=== PATIENT | female | born 1980 | race Caucasian/White ===

== ENCOUNTER 2023-09-19 03:31 | Inpatient (IN) | payer MEDICAID, SELFPAY ==
[2023-09-19] VITALS (18 sets, daily range): BP systolic 107–147; BP diastolic 71–97; PULSE 65–87; RESP 16–22; TEMP 36.8–37.2; O2SAT 94–100; BMI 32.5
--- NOTE | 2023-09-19 03:36 | PC.NURSE ---
pt arrived to the floor via stretcher from [facility] with EMS, @[id number]
--- NOTE | 2023-09-19 03:53 | EXP.HP ---
History of Present Illness *Admission Date: 09/19/23 *Reason for visit:: CP *History of present illness: Patient is a 43-year-old obese female, with PMHx of recent diagnosis of diabetes, hypertension, hyperlipidemia, current smoker. Patient been admitted from [facility] for evaluation and workup of chest pain. Patient is that the symptoms began 2 days ago when she initially went to the ED for evaluation, at that time labs were unremarkable patient was discharged home. Came back tonight with worsening pain. Pain does not radiate or migrate to the arms got worse when she lies flat. Patient localizes pain to the right parasternal area in the midclavicular area and also reports that sometimes goes to the right shoulder and neck. Patient denies any associated shortness of breath or fatigue. No fever. No any other symptoms. ED from another facility request admission for evaluation and cardiac workup. [facility] Disclaimer: The information contained in this section may have been updated after the patient was seen, as this information can be updated by other users. Medical History (Updated 09/19/23 @ 04:43 by David Acuña APRN) History of cervical cancer Hyperlipidemia Hypertension Diabetes mellitus Surgical History (Updated 09/19/23 @ 04:25 by Yasmin Haywood RN) History of appendectomy Family History (Updated 09/19/23 @ 04:25 by Yasmin Haywood RN) Other Family history of blood clots Family history of epilepsy Family history of heart disease Social History (Updated 09/19/23 @ 04:25 by Yasmin Haywood RN) Smoking Status: Current every day smoker alcohol intake: never current occupational status: employed Travel in the last 8 weeks: Inside the [place] Review of Systems Review of Systems Review of systems:: pertinent systems reviewed and negative unless documented below Meds Home Medications and Allergies Home Medications Medication Instructions Recorded Confirmed Type amlodipine 10 mg tablet 10 mg PO DAILY 09/19/23 09/19/23 History aspirin 81 mg chewable tablet 81 mg PO DAILY 09/19/23 09/19/23 History empagliflozin 25 mg tablet 25 mg PO DAILY 09/19/23 09/19/23 History (Jardiance) fluticasone propionate 50 2 spray intranasal BID 09/19/23 09/19/23 History mcg/actuation nasal spray,suspension levocetirizine 5 mg tablet 5 mg PO HS 09/19/23 09/19/23 History metformin 500 mg tablet 500 mg PO BID 09/19/23 09/19/23 History naproxen 250 mg tablet 250 mg PO BID PRN headaches 09/19/23 09/19/23 History nebivolol 10 mg tablet (Bystolic) 10 mg PO DAILY 09/19/23 09/19/23 History nicotine 10 mg/mL nasal spray 1 spray intranasal DAILY 09/19/23 09/19/23 History (Nicotrol NS) pravastatin 80 mg tablet 80 mg PO HS 09/19/23 09/19/23 History semaglutide 0.25 mg or 0.5 mg (2 0.5 mg SQ WEEKLY 09/19/23 09/19/23 History mg/3 mL) subcutaneous pen injector (Ozempic) New Prescriptions to Start Prescriptions: Allergies Allergy/AdvReac Type Severity Reaction Status Date / Time No Known Allergies Allergy Verified 09/19/23 03:44 Exam Data for Last 24 hours I & O for Last 24 hours: Intake & Output 09/16/23 09/17/23 09/18/23 09/19/23 23:59 23:59 23:59 23:59 Weight 80.739 kg Constitutional Constitutional: mild distress, obese and cooperative *Routine HEENT Exam Head: Present normocephalic Eye: Present EOMI and PERRL ENT: Present mucous membranes moist *Routine Neck Exam Neck: Present supple; Absent lymphadenopathy *Routine Respiratory Exam Respiratory: Present CTA bilaterally, normal respiratory effort and symmetric chest movement *Routine Cardiovascular Exam Cardiovascular: Present RRR, Normal S1 and Normal S2 *Routine Abdominal Exam Abdominal: Present soft and normoactive bowel sounds; Absent tenderness *Routine Rectal Exam Rectal:: deferred *Routine Genitalia Exam Genitalia:: deferred *Routine Extremities Exam Extremities: Absent cyanosis, clubbing or edema *Routine Skin Exam Skin: Present warm; Absent rash *Routine Neurological Exam Neurological: Present alert and oriented X3 H&P: Result Imaging and Cardiology EKG: Status: image reviewed by me and Preliminary report Assessment and Plan *Assessment and plan (1) NSTEMI (non-ST elevated myocardial infarction): Status: Acute Category: Medical Code(s): I21.4 - Non-ST elevation (NSTEMI) myocardial infarction (2) Thrombocytosis, unspecified: Status: Acute Category: Medical Code(s): D75.839 - Thrombocytosis, unspecified (3) Hypertension: Status: Acute Qualifiers: Hypertension type: unspecified Qualified Code(s): I10 - Essential (primary) hypertension Category: Medical Code(s): I10 - Essential (primary) hypertension (4) Diabetes mellitus: Status: Acute Qualifiers: Diabetes mellitus complication status: with other specified complication Diabetes mellitus rodent exterminator insulin use: without correction use Diabetes mellitus type: type 2 Qualified Code(s): E11.69 - Type 2 diabetes mellitus with other specified complication Category: Medical Code(s): E11.9 - Type 2 diabetes mellitus without complications (5) Hyperlipidemia: Status: Acute Qualifiers: Hyperlipidemia type: unspecified Qualified Code(s): E78.5 - Hyperlipidemia, unspecified Category: Medical Code(s): E78.5 - Hyperlipidemia, unspecified (6) Current smoker: Status: Acute Category: Social Hx Code(s): F17.200 - Nicotine dependence, unspecified, uncomplicated (7) Obesity (BMI 30-39.9): Status: Acute Category: Medical Code(s): E66.9 - Obesity, unspecified Plan 43-year-old obese female, with PMHx of recent diagnosis of diabetes, hypertension, hyperlipidemia, current smoker. Patient been admitted from [facility] for evaluation and workup of chest pain. Initial workup included troponin that was elevated x 2. EKG was showing nonspecific ST changes. With some T wave version. Patient was loaded with aspirin 325 mg. Transfer was requested. Discussed with the ER provider at the other facility patient is core 6 on cardiac risk which is considered moderate, the mean to inpatient monitoring for any further workup. I agree for transfer and admission. Plan as follows: -NSTEMI: Admit patient for continuous cardiac telemetry. Cardiology consult Keep it n.p.o. for further cardiac intervention Monitor for chest pain heart rhythm and vital signs per unit Obtain CBC CMP and lipid panel Trend troponin Chest x-ray. And EKG PT/INR Nitroglycerin sublingual as needed for chest pain. Morphine for severe pain Optimize O2 saturation oxygen nasal cannula as needed Brilinta 180 mg once -Thrombocytosis unspecified. No history of splenectomy patient has history of malignant tumor of cervix removed. Also could be related to smoking will repeat and monitor CBC -History of hypertension diabetes and hyperlipidemia: Accu-Chek before meals Hold metformin On sliding scale Obtain A1c Resume amlodipine aspirin and pravastatin Current smoker: On nicotine patch Obesity: Patient on Ozempic weekly. Encouraged to continue weight reduction. Lovenox for DVT prophylaxis. On Protonix for GI bleed protection Full code Rounded on patient after nurse practitioner. Personally examined and interviewed patient. Agree with exam findings and care plan as documented. Troponin trended up, repeat 0.48. Cardiology evaluated. Going for heart cath today. Continues to require inpatient management. Chest pain better by morning rounds
--- NOTE | 2023-09-19 04:17 | ECG_ITS ---
APPROVED REPORT Exam: Resting ECG HR:79 bpm ECG Measurements Heart Rate 79 AXES MO 156 P 55 QRSd 87 QRS 46 QT 383 T 14 QTc 417 Conclusion SINUS RHYTHM NORMAL ECG UNCONFIRMED REPORT Electronically signed by : BIA PATEL, 09/20/2023 02:24:56
--- NOTE | 2023-09-19 04:17 | XR_ITS ---
FINAL REPORT TECHNIQUE: Single view chest CLINICAL HISTORY: CP FINDINGS: A single view of the chest was obtained. The heart and mediastinum are within normal limits. There are mild bibasilar opacities favored to represent atelectasis over pneumonia. There is no pneumothorax. Osseous structures are unremarkable. IMPRESSION: Mild bibasilar opacities, favor atelectasis over pneumonia. Reviewed, Interpreted and Dictated by Stephen Bush III, MD Transcribed by Lori Glasgow Authenticated and [facility]
[2023-09-19 04:22] LABS: Basophils # 0.1 K/mm3 (0-0.2); Basophils % 0.6 % (0.1-2.0); Eosinophils # 0.2 K/mm3 (0.0-0.4); Eosinophils % 1.6 % (0.1-12.0); Hematocrit 45.4 % (37.0-47.0); Hemoglobin 14.9 g/dL (12.2-16.2); Lymphocytes # 1.6 K/mm3 (0.7-4.5); Lymphocytes % 11.4 % (10-50); Mean Corpuscular HGB Conc 32.7 g/dL (31.8-35.4); Mean Corpuscular Hemoglobin 33.4 pg (27.0-31.2); Mean Corpuscular Volume 102.2 fl (81-99); Mean Platelet Volume 11.3 fl (7.4-10.4); Monocytes # 0.2 K/mm3 (0.1-1.0); Monocytes % 1.7 % (1.7-9.3); Neutrophils % 84.7 % (37.0-80.0); Platelet Count 623 K/mm3 (142-424); Red Blood Count 4.45 M/mm3 (4.20-5.40); Red Cell Distribution Width 14.7 % (11.5-17.5); White Blood Count 14.1 K/mm3 (4.8-10.8)
[2023-09-19 04:27] LABS: Chloride 106 mmol/L (98-107)
[2023-09-19 04:28] LABS: Potassium 5.1 mmoL/L (3.5-5.1); Sodium 142 mmol/L (136-145)
[2023-09-19 04:30] LABS: Alanine Aminotransferase 30 U/L (12-78); Albumin Level 4.7 g/dl (3.5-5.0); Albumin/Globulin Ratio 1.2 (1.1-1.8); Alkaline Phosphatase 79 U/L (38-126); Anion Gap 16.1 mEq/L (5-15); Aspartate Amino Transferase 29 U/L (14-36); Bilirubin,Total 0.4 mg/dl (0.2-1.3); Blood Urea Nitrogen 17 mg/dl (7-17); Carbon Dioxide 25 mmol/L (22.0-30.0); Creatinine Clearance Estimated 102 mL/min (50-200); Estimated Glomerular Filt Rate 68 ml/min (>60); GFR (African American) 82 ML/MIN (>60); Total Protein,Serum 8.7 g/dl (6.3-8.2)
[2023-09-19 04:31] LABS: Calcium 10.1 mg/dl (8.4-10.2); Chol/HDL Ratio 3.2 (1-3.5); Cholesterol 235 mg/dl (140-200); Glucose 152 mg/dl (74-100); HDL Cholesterol 73 mg/dl (40-60); Triglycerides 91 mg/dl (30-150); VLDL Cholesterol 18 mg/dL (0-40)
[2023-09-19 04:36] LABS: Hemoglobin A1C 5.7 % (4.0-6.0); INR 0.96 (0.9-1.1); Prothrombin Time 10.4 seconds (10.1-12.5)
[2023-09-19 04:42] LABS: Direct LDL Cholesterol 119.61 mg/dL (100-129)
[2023-09-19 04:43] LABS: Troponin I 0.14 ng/ml (0.00-0.034)
[2023-09-19] MEDS: NICOTINE 21MG/24HR PATCH 21 MG TD (05:01)
[2023-09-19 05:02] LABS: Thyroid Stimulating Hormone 0.84 uIU/mL (0.465-4.68)
[2023-09-19] MEDS: TICAGRELOR 90MG TABLET 180 MG PO (05:07)
[2023-09-19 05:16] LABS: C-Reactive Protein 1.8 mg/L (0-4)
[2023-09-19 05:35] LABS: Erythrocyte Sedimentation Rate 4 mm/hr (0-20)
[2023-09-19 06:23] LABS: POC Glucose,Bedside 121 (70-110)
--- NOTE | 2023-09-19 07:55 | HMH.PHAINT1 ---
Pharmacy Intervention Comments: HOE MEDICATION LIST VERIFIED USING LIST FROM OUTPATIENT PHARMACY
--- NOTE | 2023-09-19 08:14 | PC.NURSE ---
All documentation and care provided by Roxi MONROY, was completed under my direct supervision. Coty Pandya RN
--- NOTE | 2023-09-19 08:20 | CA_ITS ---
APPROVED REPORT EXAM: Comprehensive 2D, Doppler, and color-flow Echocardiogram Landscape Laborer: Char Viveros RDCS Ht: 5 ft 2 in Wt: 178lbs BSA: 1.82 BP: 124/81 mmHg Indications: NSTEMI,DM,CP M-Mode Dimensions RVDd 1.00 cm (0.9-2.6) LA Diam 2.48 cm (1.9-4.0) LVDd 4.91 cm (3.5-5.7) LVDs 3.72 cm (3.5-5.7) IVSd 0.66 cm (0.6-1.1) PWd 0.69 cm (0.6-1.1) EF (Teich) 48.10% FS 24.20% EDV (Teich) 113.40 mL ESV (Teich) 58.90 mL LV Diastology E Decel Time 190 (160-240 msec) E/A Ratio 0.9 Aortic Valve ABIDA Index 0.99 cm2/m2 AoV Peak Terrence. 157.0 (50-130 cm/s) AO Peak GR. 9.90 mmHg AO Mean GR. 4.80 (<5 mmHg) AO VTI 27.4 (18-25 cm) ABIDA (VTI) 1.85 (2.5-4.5 cm2) Mitral Valve MV E Max Terrence. 67.0 (40-130 cm/s) MV A Velocity 71.0 (40-130 cm/s) E/A Ratio 0.95 MV PHT 56.0 ms Left Ventricle The left ventricle is normal size. The left ventricular systolic function is mildly reduced. There is normal left ventricular wall thickness. There is moderate hypokinesis of the inferior anteroseptal, and inferolateral LV dickens. The left ventricular diastolic function is normal. LVEF is 45%. Right Ventricle The right ventricle is normal size. The right ventricular systolic function is normal. Atria The left atrium size is normal. The right atrium size is normal. There is no Doppler evidence of interatrial shunt. Aortic Valve The aortic valve opens well. There is no aortic valvular stenosis. No aortic regurgitation. Mitral Valve The mitral valve is normal in structure. No evidence of mitral valve stenosis. Trace mitral valve regurgitation noted. Tricuspid Valve The tricuspid valve leaflets are thin and pliable. Trace tricuspid regurgitation. There is insufficient TR jet to estimate RVSP. Pulmonic Valve The pulmonary valve is normal in structure. Trace pulmonic regurgitation. Great Vessels The aortic root is normal in size. The ascending aorta is not well-visualized. IVC is normal in size and collapses >50% with inspiration. Pericardium There is no pericardial effusion. Other Information Study Quality: Fair Conclusion Mildly reduced LV systolic function (LVEF 45%). Moderate hypokinesis of the inferior anteroseptal, and inferolateral LV dickens. No significant valvular stenosis or regurgitation. Of note, the above findings of reduced LVEF and wall motion abnormalities were relayed to the inpatient cardiology service team at the time of image acquisition. Electronically signed by : Gemini Laureano MD 09/21/2023 23:48:24
[2023-09-19 08:51] LABS: Troponin I 0.48 ng/ml (0.00-0.034)
--- NOTE | 2023-09-19 09:42 | IR_ITS ---
APPROVED REPORT Patient Location: Inpatient PROCEDURES Selective coronary angiogram Drug-eluting stent to the ostial proximal and mid dominant right coronary in a contiguous manner Drug-eluting stent deployment to the proximal and mid circumflex artery INDICATION Acute non-ST elevation myocardial infarction, Coronary artery disease Informed consent was obtained prior to the procedure. COMPLICATIONS NONE Estimated Blood Loss: LESS THAN 10 ML TECHNIQUE One percent lidocaine used to anesthetize the right anterior aspect of the wrist. The right radial artery was accessed via the Seldinger technique. A 6 Swedish sheath was placed in the right radial artery. 2.5 mg of Verapamil, 800 mcg of nitroglycerin, 1mg Lidocaine and 5000 U Heparin were given through the arterial sheath. The papa catheter was also used to perform selective coronary angiogram. At the end the diagnostic angiogram therapeutic heparin was administered giving a therapeutic ACT and the guide catheter was placed in left main artery followed by Choice PT extra-support wire placed down the circumflex artery. A 3 mm x 38 mm [place] frontier stent was placed in the proximal to mid portion of the circumflex artery extending into the terminal obtuse marginal artery and deployed at 12 monica. A 3 mm x 12 mm noncompliant balloon was then placed in the distal portion and deployed at 20 monica to post dilate. The balloon was brought back and deployed at 24 monica in the proximal segment also post dilate. BRODERICK II flow was present at the beginning of the procedure with BRODERICK-3 flow at the end the procedure. Following this the apparatus was removed from the left main artery and placed in the right coronary followed by Choice PT extra-support wire placed distally. A 3 mm x 38 mm [place] frontier stent was placed in the proximal to mid right coronary artery and deployed at 20 monica. A 3.5 x 34 mm [place] frontier stent was placed proximal to this yet still overlapping it and extending back into the ostial segment and deployed at 20 monica. A 3.5 x 12 mm noncompliant balloon was then placed in the proximal segment deployed at 26 monica to post dilate. BRODERICK-3 flow was present before and after the procedure. At the end procedure the apparatus was removed the sheath was removed and hemostasis was achieved using TR banding patient was transferred to the postop holding in stable condition ANGIOGRAPHIC RESULTS The left main artery Normal The left anterior descending artery Has proximal 30% stenosis with mid vessel 40% stenosis The circumflex artery Large nondominant yet still large and has a critical proximal eccentric 90% stenosis with an additional 90% stenosis in the second obtuse marginal The right coronary artery Has proximal 60% stenosis with mid vessel 70 to 80% stenosis The CAZARES ventriculogram reveals Was not performed The left ventricular end-diastolic pressure Was not measured IMPRESSION Severe to critical two-vessel coronary disease Successful stenting of the proximal circumflex artery extending the second obtuse marginal artery critical disease reduced to less than 10% with 1 contiguous drug-eluting stent Successful stenting of the ostial proximal and mid dominant right coronary artery moderate to severe and severe disease reduced to 0% with 2 contiguous drug-eluting stents PLAN 1. Brilinta 90 twice daily plus aspirin 81 mg daily 2. LDL less than 55 to be achieved with high intensity statin 3. Avoidance of tobacco products 4. Standard therapy for ejection fraction of 45% 5. HEIDY inhibitor's or ARB combined with beta-blockers prior to discharge home 6. Cardiac rehabilitation Electronically signed by : Moreno Saldaña MD 09/19/2023 13:08:07
[2023-09-19 09:44] LABS: Basophils # 0.1 K/mm3 (0-0.2); Basophils % 0.6 % (0.1-2.0); Eosinophils % 0.1 % (0.1-12.0); Hematocrit 42.1 % (37.0-47.0); Hemoglobin 13.5 g/dL (12.2-16.2); Lymphocytes # 3.1 K/mm3 (0.7-4.5); Lymphocytes % 22.7 % (10-50); Mean Corpuscular HGB Conc 32.1 g/dL (31.8-35.4); Mean Corpuscular Hemoglobin 32.6 pg (27.0-31.2); Mean Corpuscular Volume 101.6 fl (81-99); Mean Platelet Volume 8.2 fl (7.4-10.4); Monocytes # 0.5 K/mm3 (0.1-1.0); Monocytes % 3.8 % (1.7-9.3); Neutrophils # 10.1 K/mm3 (1.8-7.8); Neutrophils % 72.9 % (37.0-80.0); Platelet Count 499 K/mm3 (142-424); Red Blood Count 4.15 M/mm3 (4.20-5.40); Red Cell Distribution Width 14.5 % (11.5-17.5); White Blood Count 13.9 K/mm3 (4.8-10.8)
[2023-09-19 09:47] LABS: Chloride 108 mmol/L (98-107); Potassium 4.4 mmoL/L (3.5-5.1); Sodium 138 mmol/L (136-145)
[2023-09-19 09:50] LABS: Anion Gap 12.4 mEq/L (5-15); Blood Urea Nitrogen 17 mg/dl (7-17); Carbon Dioxide 22 mmol/L (22.0-30.0); Creatinine Clearance Estimated 114 mL/min (50-200); Estimated Glomerular Filt Rate 78 ml/min (>60); GFR (African American) 94 ML/MIN (>60)
--- NOTE | 2023-09-19 09:50 | P.CONCA_ITS ---
History of Present Illness History of Present Illness Consult date: 09/19/23 Requesting physician: Tra Bowman Consult reason: chest pain Chief complaint: chest pain History of present illness: This is a 43-year-old white female with past medical history of insulin- dependent diabetes mellitus type 2, current 1 pack/day smoker, hypertension, hyperlipidemia who presented to emergency department from [facility] emergency department with complaints of chest pain. Patient reports intermittent episodes of right-sided chest pain off and on since Friday. Patient was evaluated in [facility] emergency department earlier in the week and workup was essentially normal so patient was discharged home. She reports continued to have intermittent episodes of chest pain worsening yesterday which prompted her to return to emergency department. Patient was transferred from [facility] emergency department to [facility] for cardiology evaluation. Initial troponin upon arrival was 0.14 trending up to 0.48. Chest x-ray shows normal sinus rhythm at a rate of 79 without acute ischemic changes present. Echocardiogram is pending. [facility] Disclaimer: The information contained in this section may have been updated after the patient was seen, as this information can be updated by other users. Medical History (Updated 09/19/23 @ 04:43 by David Acuña APRN) History of cervical cancer Hyperlipidemia Hypertension Diabetes mellitus Surgical History (Updated 09/19/23 @ 04:25 by Yasmin Haywood RN) History of appendectomy Family History (Updated 09/19/23 @ 04:25 by Yasmin Haywood RN) Other Family history of blood clots Family history of epilepsy Family history of heart disease Social History (Updated 09/19/23 @ 04:25 by Yasmin Haywood RN) Smoking Status: Current every day smoker alcohol intake: never current occupational status: employed Travel in the last 8 weeks: [place] the [place] Review of Systems *Cardiovascular Cardiovascular: Reports chest pain Exam Data for Last 24 hours Vital signs and Labs for Last 24 Hours: Temp Pulse Resp BP Pulse Ox O2 Del Method 98.9 F 82 16 124/81 94 L Room Air 09/19/23 07:48 09/19/23 08:04 09/19/23 07:48 09/19/23 07:48 09/19/23 08:04 09/19/23 09:44 Laboratory Results - last 24 hr 09/19/23 04:10: WBC 14.1 H, RBC 4.45, Hgb 14.9, Hct 45.4, MCV 102.2 H, MCH 33.4 H, MCHC 32.7, RDW 14.7, Plt Count 623 H, MPV 11.3 H, Neut % (Auto) 84.7 H, Lymph % (Auto) 11.4, [place] % (Auto) 1.7, Eos % (Auto) 1.6, Baso % (Auto) 0.6, Neut # (Auto) 12.0 H, Lymph # (Auto) 1.6, [place] # (Auto) 0.2, Eos # (Auto) 0.2, Baso # (Auto) 0.1, ESR 4, PT 10.4, INR 0.96, Sodium 142, Potassium 5.1, Chloride 106, Carbon Dioxide 25, Anion Gap 16.1 H, BUN 17, Creatinine 0.90, Estimated Creat Clear 102, Estimated GFR 68, Est GFR ( Amer) 82, Glucose 152 H, Hemoglobin A1c 5.7, Calcium 10.1, Total Bilirubin 0.4, AST 29, ALT 30, Alkaline Phosphatase 79, Troponin I 0.14 H, C-Reactive Protein 1.8, Total Protein 8.7 H, Albumin 4.7, Globulin 4.0 H, Albumin/Globulin Ratio 1.2, Triglycerides 91, Cholesterol 235 H, LDL Cholesterol Direct 119.61, VLDL Cholesterol 18, HDL Cholesterol 73 H, Cholesterol/HDL Ratio 3.2, TSH 0.84 09/19/23 06:03: POC Glucose 121 H 09/19/23 07:55: Troponin I 0.48 H I & O for Last 24 hours: Intake & Output 09/16/23 09/17/23 09/18/23 09/19/23 23:59 23:59 23:59 23:59 Output Total 350 / 350 Balance -350 / -350 Weight 178 lb Constitutional Constitutional: no acute distress *Routine Respiratory Exam Respiratory: Present CTA bilaterally and symmetric chest movement *Routine Cardiovascular Exam Cardiovascular: Present RRR, Normal S1 and Normal S2 *Routine Abdominal Exam Abdominal: Present soft and normoactive bowel sounds; Absent tenderness *Routine Extremities Exam Extremities: Present full ROM and normal capillary refill; Absent edema *Routine Skin Exam Skin: Present intact, dry and warm Detailed Neck Exam: Thyroids Thyroid: Absent bruit Meds Home Medications and Allergies Home Medications Medication Instructions Recorded Confirmed Type amlodipine 10 mg tablet 10 mg PO DAILY 09/19/23 09/19/23 History aspirin 81 mg chewable tablet 81 mg PO DAILY 09/19/23 09/19/23 History empagliflozin 25 mg tablet 25 mg PO DAILY 09/19/23 09/19/23 History (Jardiance) fluticasone propionate 50 2 spray intranasal BID 09/19/23 09/19/23 History mcg/actuation nasal spray,suspension levocetirizine 5 mg tablet 5 mg PO HS 09/19/23 09/19/23 History metformin 500 mg tablet 500 mg PO BID 09/19/23 09/19/23 History naproxen 250 mg tablet 250 mg PO BID PRN headaches 09/19/23 09/19/23 History nebivolol 10 mg tablet (Bystolic) 10 mg PO DAILY 09/19/23 09/19/23 History nicotine 10 mg/mL nasal spray 1 spray intranasal DAILY 09/19/23 09/19/23 History (Nicotrol NS) pravastatin 80 mg tablet 80 mg PO HS 09/19/23 09/19/23 History semaglutide 0.25 mg or 0.5 mg (2 0.5 mg SQ WEEKLY 09/19/23 09/19/23 History mg/3 mL) subcutaneous pen injector (Ozempic) New Prescriptions to Start Prescriptions: Allergies Allergy/AdvReac Type Severity Reaction Status Date / Time No Known Allergies Allergy Verified 09/19/23 03:44 Assessment and Plan *Assessment and plan (1) NSTEMI (non-ST elevated myocardial infarction): Status: Acute Category: Medical Code(s): I21.4 - Non-ST elevation (NSTEMI) myocardial infarction (2) Current smoker: Status: Acute Category: Social Hx Code(s): F17.200 - Nicotine dependence, unspecified, uncomplicated (3) Obesity (BMI 30-39.9): Status: Acute Category: Medical Code(s): E66.9 - Obesity, unspecified (4) Diabetes mellitus: Status: Acute Qualifiers: Diabetes mellitus complication status: with other specified complication Diabetes mellitus retirement insulin use: without buttermaker continuous churn use Diabetes mellitus type: type 2 Qualified Code(s): E11.69 - Type 2 diabetes mellitus with other specified complication Category: Medical Code(s): E11.9 - Type 2 diabetes mellitus without complications (5) Hyperlipidemia: Status: Acute Qualifiers: Hyperlipidemia type: unspecified Qualified Code(s): E78.5 - Hyperlipidemia, unspecified Category: Medical Code(s): E78.5 - Hyperlipidemia, unspecified (6) Hypertension: Status: Acute Qualifiers: Hypertension type: unspecified Qualified Code(s): I10 - Essential (primary) hypertension Category: Medical Code(s): I10 - Essential (primary) hypertension Plan Chest pain NSTEMI Troponin trending from 0.14-0.48 in the setting of intermittent chest pain x 3 days, worse since yesterday. EKG without acute ischemic changes noted Will proceed with left heart catheterization today for further evaluation of ischemic disease. Discussed risk versus benefits with patient she is agreeable to proceed. Risk factors include 1 pack/day smoker, diabetes mellitus, hypertension, hyperlipidemia, strong family history. Continue aspirin 81 mg daily. Switch Bystolic to Coreg 3.125 mg p.o. twice daily Ischemic cardiomyopathy/HFrEF Preliminary echo report shows estimated EF of 45%, no valvular insufficiency, wall motion abnormalities present Start Entresto 24/26 mg p.o. twice daily and change Bystolic to Coreg as above. Continue Jardiance Consider addition of Aldactone prior to discharge home Obesity Weight loss encouraged with diet and exercise Diabetes mellitus type 2 Defer to primary service. On Ozempic and Jardiance. Hyperlipidemia LDL goal of less than 55, LDL is 119. Start atorvastatin 40 mg daily Hypertension Currently well-controlled Change Bystolic to Coreg 3.125 mg p.o. twice daily. Stop amlodipine. Add Entresto. CV summary 09/19/2023: We will proceed with left heart catheterization today for evaluation of NSTEMI. Preliminary echo report shows an estimated EF of 45% with wall motion abnormalities noted. Cardiac meds Aspirin 81 mg p.o. daily Atorvastatin 40 mg p.o. daily Coreg 3.125 mg p.o. twice daily Jardiance 10 mg p.o. daily Entresto 24/26 mg p.o. twice daily Continue Ozempic Add Aldactone prior to discharge
[2023-09-19 09:51] LABS: Calcium 9.6 mg/dl (8.4-10.2); Glucose 102 mg/dl (74-100)
[2023-09-19] MEDS: FLUTICASONE PROP 50MCG NASAL SPRAY 16GM 2 SPRAY NS ×2 (10:48→20:25)
[2023-09-19] MEDS: ASPIRIN 81MG CHEWABLE TABLET 81 MG PO (10:50)
[2023-09-19] MEDS: AMLODIPINE 10MG TABLET 10 MG PO (10:50)
[2023-09-19] MEDS: EMPAGLIFLOZIN 10MG TABLET 10 MG PO (10:55)
[2023-09-19] MEDS: CARVEDILOL 3.125MG TABLET 3.125 MG PO ×2 (10:55→20:25)
[2023-09-19 11:31] LABS: POC Glucose,Bedside 102 (70-110)
--- NOTE | 2023-09-19 11:35 | PC.NURSE ---
pt to denture laboratory technician
[2023-09-19] MEDS: LIDOCAINE 1% 10ML MDV 20 ML IJ (11:58)
[2023-09-19] MEDS: 0.9 % SODIUM CHLORIDE 500 ML 25 ML IV (11:58)
[2023-09-19] MEDS: HEPARIN 1,000 UNITS/ML 10ML VIAL (CATH LAB) 10000 UNIT IV (11:58)
[2023-09-19] MEDS: HEPARIN 1,000 UNITS/500ML NS (CATH LAB) 3000 UNIT IV (11:58)
[2023-09-19] MEDS: NITROGLYCERIN 800MCG/8ML SYR (CATH LAB) 800 MCG IA (11:59)
[2023-09-19] MEDS: VERAPAMIL 2.5MG/ML 2ML VIAL 2.5 MG IV (11:59)
[2023-09-19] MEDS: diphenhydrAMINE 50MG/ML VIAL 50 MG IV (11:59)
[2023-09-19] MEDS: MIDAZOLAM HCL 1MG/1ML 5ML VIAL 1 MG IV (12:24)
[2023-09-19] MEDS: FENTANYL 100MCG/2ML VIAL 50 MCG IV (12:24)
--- NOTE | 2023-09-19 13:04 | PC.NURSE ---
wander colón from [facility]
[2023-09-19 13:46] LABS: CATHL Activated Clotting Time 312 SEC (74-125)
[2023-09-19] MEDS: IOPAMIDOL-370 (76%);100ML BOTTLE 120 ML IV (14:33)
[2023-09-19 17:18] LABS: POC Glucose,Bedside 101 (70-110)
--- NOTE | 2023-09-19 17:35 | PC.NURSE ---
patient is alert and oriented x4. fsbs below intervention level in the low 100s, so no insulin given per protocol. Patient returned from general laborer at 1304 with right radial cath site. Air was deflated every 15 minutes from [id number]. Site was then cleaned with chlorohexadine and a tegaderm placed. shadowing on tegaderm was noted at 1740. Area outlined and is being monitored for increase in size. Patient consumed most of her evening meal. Currently sitting up in the chair with and daughter at bedside. No complaints of pain at this time. Patient has no current requests.
[2023-09-19] MEDS: ATORVASTATIN 40MG TABLET 40 MG PO (20:25)
[2023-09-19] MEDS: PANTOPRAZOLE 40MG TABLET 40 MG PO (20:26)
[2023-09-19] MEDS: LORATADINE 10MG TABLET 10 MG PO (20:26)
[2023-09-19] MEDS: TICAGRELOR 90MG TABLET 90 MG PO (20:26)
[2023-09-19] MEDS: SACUBITRIL/VALSARTAN 24-26MG TABLET 1 EACH PO (20:26)
[2023-09-19 20:36] LABS: POC Glucose,Bedside 118 (70-110)
[2023-09-20] VITALS: BP 84/48; PULSE 60; PULSE 63; RESP 17; TEMP 37; O2SAT 97
[2023-09-20 04:00] VITALS: BP 92/52; PULSE 70; PULSE 73; RESP 16; TEMP 37.1; O2SAT 94; BMI 32.7
[2023-09-20 06:18] LABS: POC Glucose,Bedside 109 (70-110)
--- NOTE | 2023-09-20 06:51 | PC.NURSE ---
Pt has rested well throughout the night. Has not called out for anything and has no complaints of pain. Pt glucose has remained within range, as a result insulin has been held.
[2023-09-20 06:57] LABS: Basophils # 0.1 K/mm3 (0-0.2); Basophils % 0.8 % (0.1-2.0); Eosinophils # 0.2 K/mm3 (0.0-0.4); Hematocrit 42.4 % (37.0-47.0); Hemoglobin 13.6 g/dL (12.2-16.2); Lymphocytes # 4.3 K/mm3 (0.7-4.5); Lymphocytes % 36.4 % (10-50); Mean Corpuscular HGB Conc 32.2 g/dL (31.8-35.4); Mean Corpuscular Hemoglobin 32.3 pg (27.0-31.2); Mean Corpuscular Volume 100.5 fl (81-99); Mean Platelet Volume 7.9 fl (7.4-10.4); Monocytes # 0.6 K/mm3 (0.1-1.0); Monocytes % 4.7 % (1.7-9.3); Neutrophils # 6.7 K/mm3 (1.8-7.8); Neutrophils % 56.1 % (37.0-80.0); Platelet Count 439 K/mm3 (142-424); Red Blood Count 4.22 M/mm3 (4.20-5.40); Red Cell Distribution Width 14.4 % (11.5-17.5); White Blood Count 11.9 K/mm3 (4.8-10.8)
[2023-09-20 07:12] LABS: Chloride 107 mmol/L (98-107); Sodium 137 mmol/L (136-145)
[2023-09-20 07:13] LABS: Potassium 4.4 mmoL/L (3.5-5.1)
[2023-09-20 07:15] LABS: Alanine Aminotransferase 24 U/L (12-78); Albumin/Globulin Ratio 1.4 (1.1-1.8); Alkaline Phosphatase 79 U/L (38-126); Anion Gap 12.4 mEq/L (5-15); Aspartate Amino Transferase 30 U/L (14-36); Bilirubin,Total 0.5 mg/dl (0.2-1.3); Blood Urea Nitrogen 23 mg/dl (7-17); Calcium 9.5 mg/dl (8.4-10.2); Carbon Dioxide 22 mmol/L (22.0-30.0); Creatinine Clearance Estimated 114 mL/min (50-200); Estimated Glomerular Filt Rate 78 ml/min (>60); GFR (African American) 94 ML/MIN (>60); Globulin 2.8 g/dL (1.3-3.2); Glucose 105 mg/dl (74-100); Total Protein,Serum 6.8 g/dl (6.3-8.2)
[2023-09-20 07:47] LABS: Magnesium 1.9 mg/dl (1.6-2.3)
[2023-09-20] MEDS: CARVEDILOL 3.125MG TABLET 3.125 MG PO (08:10)
[2023-09-20] MEDS: TICAGRELOR 90MG TABLET 90 MG PO (08:10)
[2023-09-20] MEDS: SACUBITRIL/VALSARTAN 24-26MG TABLET 1 EACH PO (08:10)
[2023-09-20] MEDS: ASPIRIN EC 81MG TABLET 81 MG PO (08:11)
[2023-09-20] MEDS: FLUTICASONE PROP 50MCG NASAL SPRAY 16GM 2 SPRAY NS (08:11)
[2023-09-20] MEDS: EMPAGLIFLOZIN 10MG TABLET 10 MG PO (08:11)
--- NOTE | 2023-09-20 08:17 | P.DS_ITS ---
General Admission date:: 09/19/23 Discharge date: 09/20/23 HPI HPI HPI: Patient is a 43-year-old obese female, with PMHx of recent diagnosis of diabetes, hypertension, hyperlipidemia, current smoker. Patient been admitted from [facility] for evaluation and workup of chest pain. Patient is that the symptoms began 2 days ago when she initially went to the ED for evaluation, at that time labs were unremarkable patient was discharged home. Came back tonight with worsening pain. Pain does not radiate or migrate to the arms got worse when she lies flat. Patient localizes pain to the right pa rasternal area in the midclavicular area and also reports that sometimes goes to the right shoulder and neck. Patient denies any associated shortness of breath or fatigue. No fever. No any other symptoms. ED from another facility request admission for evaluation and cardiac workup. Hospital Course Hospital Course Hospital Course: 43-year-old female admitted to medicine for chest pain. Found to have slight elevation in troponins. Cardiology was consulted and evaluated patient. Taken for left heart cath with placement of multiple stents, see cath report for full details. Monitored overnight. Stable for discharge home with continued close follow-up as an outpatient. EF greater than 35%, no indication for LifeVest. Initiated on goal-directed therapy, tolerating well. Problems addressed as follows: Chest pain NSTEMI Ischemic cardiomyopathy/heart failure with reduced ejection fraction Patient admitted to medicine for chest pain. Found to have elevation in troponin trending from 0.14-0.48 in the setting of intermittent chest pain x 3 days, worse since day before admission. EKG without acute ischemic changes. Cardiology was consulted. Recommended left heart cath to further evaluate. Risk factors include 1 pack a day smoker, diabetes, hypertension, hyperlipidemia, strong family history. Heart cath with the following findings: ANGIOGRAPHIC RESULTS The left main artery Normal The left anterior descending artery Has proximal 30% stenosis with mid vessel 40% stenosis The circumflex artery Large nondominant yet still large and has a critical proximal eccentric 90% stenosis with an additional 90% stenosis in the second obtuse marginal The right coronary artery Has proximal 60% stenosis with mid vessel 70 to 80% stenosis The CAZARES ventriculogram reveals Was not performed The left ventricular end-diastolic pressure Was not measured IMPRESSION Severe to critical two-vessel coronary disease Successful stenting of the proximal circumflex artery extending the second obtuse marginal artery critical disease reduced to less than 10% with 1 contiguous drug-eluting stent Successful stenting of the ostial proximal and mid dominant right coronary artery moderate to severe and severe disease reduced to 0% with 2 contiguous drug-eluting stents Patient initiated on goal-directed therapy with Brilinta 90 mg twice daily, aspirin 81 mg daily, Entresto 24/26 mg twice daily, carvedilol 3.125 mg twice daily. Of note: Preliminary echo report showing EF of 45%. Obesity: Weight loss encouraged with diet and exercise Diabetes mellitus type 2: Diabetes with improved control. A1c 5.7. Will continue Ozempic and Jardiance. Hyperlipidemia: LDL goal of less than 55, LDL is 119. Start atorvastatin 40 mg daily Stable to discharge home. Recommend close follow-up with cardiology. Chest pain resolved. Patient states she is feeling better on day of discharge Exam Data for Last 24 hours Vital signs and Labs for Last 24 Hours: Temp Pulse Resp BP Pulse Ox O2 Del Method 98.9 F 82 16 124/81 94 L Room Air 09/19/23 07:48 09/19/23 08:04 09/19/23 07:48 09/19/23 07:48 09/19/23 08:04 09/19/23 09:44 Laboratory Results - last 24 hr 09/19/23 04:10: WBC 14.1 H, RBC 4.45, Hgb 14.9, Hct 45.4, MCV 102.2 H, MCH 33.4 H, MCHC 32.7, RDW 14.7, Plt Count 623 H, MPV 11.3 H, Neut % (Auto) 84.7 H, Lymph % (Auto) 11.4, [place] % (Auto) 1.7, Eos % (Auto) 1.6, Baso % (Auto) 0.6, Neut # (Auto) 12.0 H, Lymph # (Auto) 1.6, [place] # (Auto) 0.2, Eos # (Auto) 0.2, Baso # (Auto) 0.1, ESR 4, PT 10.4, INR 0.96, Sodium 142, Potassium 5.1, Chloride 106, Carbon Dioxide 25, Anion Gap 16.1 H, BUN 17, Creatinine 0.90, Estimated Creat Clear 102, Estimated GFR 68, Est GFR ( Amer) 82, Glucose 152 H, Hemoglobin A1c 5.7, Calcium 10.1, Total Bilirubin 0.4, AST 29, ALT 30, Alkaline Phosphatase 79, Troponin I 0.14 H, C-Reactive Protein 1.8, Total Protein 8.7 H, Albumin 4.7, Globulin 4.0 H, Albumin/Globulin Ratio 1.2, Triglycerides 91, Cholesterol 235 H, LDL Cholesterol Direct 119.61, VLDL Cholesterol 18, HDL Cholesterol 73 H, Cholesterol/HDL Ratio 3.2, TSH 0.84 09/19/23 06:03: POC Glucose 121 H 09/19/23 07:55: WBC 13.9 H, RBC 4.15 L, Hgb 13.5, Hct 42.1, MCV 101.6 H, MCH 32.6 H, MCHC 32.1, RDW 14.5, Plt Count 499 H, MPV 8.2, Neut % (Auto) 72.9, Lymph % (Auto) 22.7, [place] % (Auto) 3.8, Eos % (Auto) 0.1, Baso % (Auto) 0.6, Neut # (Auto) 10.1 H, Lymph # (Auto) 3.1, [place] # (Auto) 0.5, Eos # (Auto) 0.0, Baso # (Auto) 0.1, Sodium 138, Potassium 4.4, Chloride 108 H, Carbon Dioxide 22, Anion Gap 12.4, BUN 17, Creatinine 0.80, Estimated Creat Clear 114, Estimated GFR 78, Est GFR ( Amer) 94, Glucose 102 H D, Calcium 9.6, Troponin I 0.48 H I & O for Last 24 hours: Intake & Output 09/16/23 09/17/23 09/18/23 09/19/23 23:59 23:59 23:59 23:59 Output Total 350 / 350 Balance -350 / -350 Weight 80.739 kg Constitutional Constitutional: no acute distress, obese and cooperative *Routine HEENT Exam Head: Present normocephalic Eye: Present EOMI and PERRL ENT: Present mucous membranes moist *Routine Neck Exam Neck: Present supple; Absent lymphadenopathy *Routine Respiratory Exam Respiratory: Present CTA bilaterally; Absent rhonchi, wheezes or crackles *Routine Cardiovascular Exam Cardiovascular: Present RRR *Routine Abdominal Exam Abdominal: Present soft and normoactive bowel sounds; Absent tenderness *Routine Rectal Exam Patient deferred: visual exam *Routine Exam Patient deferred: external exam *Routine Extremities Exam Extremities: Absent cyanosis, clubbing or edema *Routine Skin Exam Skin: Present warm; Absent rash *Routine Neurological Exam Neurological: Present alert, oriented X3 and moving all extremities; Absent altered mental status Results Data Completed and Pending Labs on day of discharge: Labs from last 24 hours 09/19/23 09/19/23 09/19/23 07:55 06:03 04:10 WBC 13.9 H 14.1 H RBC 4.15 L 4.45 Hgb 13.5 14.9 Hct 42.1 45.4 MCV 101.6 H 102.2 H MCH 32.6 H 33.4 H MCHC 32.1 32.7 RDW 14.5 14.7 Plt Count 499 H 623 H MPV 8.2 11.3 H Neut % (Auto) 72.9 84.7 H Lymph % (Auto) 22.7 11.4 Newport % (Auto) 3.8 1.7 Eos % (Auto) 0.1 1.6 Baso % (Auto) 0.6 0.6 Neut # (Auto) 10.1 H 12.0 H Lymph # (Auto) 3.1 1.6 [place] # (Auto) 0.5 0.2 Eos # (Auto) 0.0 0.2 Baso # (Auto) 0.1 0.1 ESR 4 PT 10.4 INR 0.96 Sodium 138 142 Potassium 4.4 5.1 Chloride 108 H 106 Carbon Dioxide 22 25 Anion Gap 12.4 16.1 H BUN 17 17 Creatinine 0.80 0.90 Estimated Creat Clear 114 102 Estimated GFR 78 68 Est GFR ( Amer) 94 82 Glucose 102 H D 152 H POC Glucose 121 H Hemoglobin A1c 5.7 Calcium 9.6 10.1 Total Bilirubin 0.4 AST 29 ALT 30 Alkaline Phosphatase 79 Troponin I 0.48 H 0.14 H C-Reactive Protein 1.8 Total Protein 8.7 H Albumin 4.7 Globulin 4.0 H Albumin/Globulin Ratio 1.2 Triglycerides 91 Cholesterol 235 H LDL Cholesterol Direct 119.61 VLDL Cholesterol 18 HDL Cholesterol 73 H Cholesterol/HDL Ratio 3.2 TSH 0.84 DS: Diagnosis Discharge Diagnosis (1) NSTEMI (non-ST elevated myocardial infarction): Status: Acute Code(s): I21.4 - Non-ST elevation (NSTEMI) myocardial infarction (2) Heart failure with reduced ejection fraction: Status: Acute Code(s): I50.20 - Unspecified systolic (congestive) heart failure (3) Current smoker: Status: Acute Code(s): F17.200 - Nicotine dependence, unspecified, uncomplicated (4) Obesity (BMI 30-39.9): Status: Acute Code(s): E66.9 - Obesity, unspecified (5) Diabetes mellitus: Status: Acute Code(s): E11.9 - Type 2 diabetes mellitus without complications Qualifiers: Diabetes mellitus complication status: with other specified complication Diabetes mellitus retirement insulin use: without retirement use Diabetes mellitus type: type 2 Qualified Code(s): E11.69 - Type 2 diabetes mellitus with other specified complication (6) Hyperlipidemia: Status: Acute Code(s): E78.5 - Hyperlipidemia, unspecified Qualifiers: Hyperlipidemia type: unspecified Qualified Code(s): E78.5 - Hyperlipidemia, unspecified (7) Hypertension: Status: Acute Code(s): I10 - Essential (primary) hypertension Qualifiers: Hypertension type: unspecified Qualified Code(s): I10 - Essential (primary) hypertension Meds Home Medications and Allergies Home Medications Medication Instructions Recorded Confirmed Type aspirin 81 mg chewable tablet 81 mg PO DAILY 09/19/23 09/19/23 History empagliflozin 25 mg tablet 25 mg PO DAILY 09/19/23 09/19/23 History (Jardiance) fluticasone propionate 50 2 spray intranasal BID 09/19/23 09/19/23 History mcg/actuation nasal spray,suspension levocetirizine 5 mg tablet 5 mg PO HS 09/19/23 09/19/23 History metformin 500 mg tablet 500 mg PO BID 09/19/23 09/19/23 History naproxen 250 mg tablet 250 mg PO BID PRN headaches 09/19/23 09/19/23 History semaglutide 0.25 mg or 0.5 mg (2 0.5 mg SQ WEEKLY 09/19/23 09/19/23 History mg/3 mL) subcutaneous pen injector (Ozempic) atorvastatin 40 mg tablet 40 mg PO HS 30 days #30 tabs 09/20/23 Rx carvedilol 3.125 mg tablet 3.125 mg PO BID 30 days #60 tabs 09/20/23 Rx nicotine 21 mg/24 hr daily 21 mg transdermal DAILYP PRN 09/20/23 Rx transdermal patch Nicotine Cravings #28 ea sacubitril 24 mg-valsartan 26 mg 1 tab PO BID 30 days #60 tabs 09/20/23 Rx tablet (Entresto) ticagrelor 90 mg tablet (Brilinta) 90 mg PO BID 30 days #60 tabs 09/20/23 Rx New Prescriptions to Start Prescriptions: inderjit Bowman,Tra carvedilol Gracie,Tra nicotine Gracie,Tra sacubitril-valsartan [Entresto] Gracie,Tra ticagrelor [Brilinta] Tra Bowman Allergies Allergy/AdvReac Type Severity Reaction Status Date / Time No Known Allergies Allergy Verified 09/19/23 03:44 Discharge Plan Disposition Patient Disposition: Home, Self-Care Condition: Fair Discharge Order Discharge Orders: Discharge Order (Routine); Ordered 09/20/23 Ordered By: Tra Bowman Follow up Plan Follow up with: Tim Cleary [Other] - 10/02/23 2:00 pm Moreno Saldaña MD [Staff Physician] - 09/24/23 11:15 am Prescriptions/Medication Reconciliation: New atorvastatin 40 mg Tablet 40 mg PO HS 30 Days Qty: 30 0RF carvedilol 3.125 mg Tablet 3.125 mg PO BID 30 Days Qty: 60 0RF nicotine 21 mg/24 hr Patch 24 Hour 21 mg transdermal DAILYP PRN (Reason: Nicotine Cravings) Qty: 28 2RF Brilinta 90 mg Tablet 90 mg PO BID 30 Days Qty: 60 0RF Entresto 24-26 mg Tablet 1 tab PO BID 30 Days Qty: 60 0RF Continued metformin 500 mg tablet 500 mg PO BID aspirin 81 mg Tablet,Chewable 81 mg PO DAILY fluticasone propionate 50 mcg/actuation spray,suspension 2 spray INTRANASAL BID Patient Comments: SPRAY 1 SPRAY INTO EACH NOSTRIL TWICE A DAY DIRECTED Jardiance 25 mg tablet 25 mg PO DAILY Ozempic 0.25 mg or 0.5 mg (2 mg/3 mL) pen injector 0.5 mg SQ WEEKLY Rx Instructions: 0.5 mg SQ every friday levocetirizine 5 mg tablet 5 mg PO HS Patient Comments: TAKE 1 TABLET BY MOUTH EVERY EVENING FOR ALLERGY SYMPTOMS Held naproxen 250 mg tablet 250 mg PO BID PRN (Reason: headaches) Hold Instructions: Recommend avoiding if at all possible until follow-up. Plan therapy increases risk for bleeding. Tylenol for headaches. Patient Comments: TAKE 1 TABLET BY MOUTH TWICE A DAY FOR 30 DAYS Discontinued pravastatin 80 mg tablet 80 mg PO HS amlodipine 10 mg tablet 10 mg PO DAILY Nicotrol NS 10 mg/mL [place],Non-Aerosol 1 spray INTRANASAL DAILY Rx Instructions: administer into each nostril nebivolol [Bystolic] 10 mg tablet 10 mg PO DAILY Other Ambulatory Orders: Basic Metabolic Panel (Routine) Timeframe: 20230924 Facility: [facility] - Location: Laboratory Ordered By: Moreno Saldaña Complete Blood Count Auto Diff (Routine) Timeframe: 20230924 Facility: [facility] - Location: Laboratory Ordered By: Moreno Saldaña Problem Reconciliation Problems Reviewed?: Yes Patient Discharge Instructions ACTIVITY: Continue current activity DIET: continue same diet Patient Instructions: DI for Cardiac Catheterization, DI for Surgical Site Infection, DI for Chest Pain Providers Primary Care Provider: Tim Cleary Admit Provider: Tra Bowman Attending Provider: Tra Bowman
--- NOTE | 2023-09-22 13:56 | CARE MANAGER ---
Contacted patient related to hospital discharge. She states she is tired but doing well. Denies questions or concerns. She has her new medications and is aware of follow up appointments. JEREMY Paredes
== END 2023-09-20 09:20 | disposition home or self-care (01) | DRG 321 ==
PROVIDERS: Internal Medicine; Nurse Practitioner; Nurse Practitioner Family; Admitting Provider Internal Medicine Adolescent Medicine; PCP Family Medicine; Visit Provider Internal Medicine Adolescent Medicine
PROC: B2111ZZ Fluoroscopy of Multiple Coronary Arteries using Low Osmolar Contrast (ICD-10-PCS; principal; 2023-09-19 12:15)
DX: I21.4 Non-ST elevation (NSTEMI) myocardial infarction (principal); F17.210 Nicotine dependence, cigarettes, uncomplicated; Z79.85 Long-term (current) use of injectable non-insulin antidiabetic drugs; Z79.899 Other long term (current) drug therapy; Z68.32 Body mass index [BMI] 32.0-32.9, adult; E66.9 Obesity, unspecified; E78.5 Hyperlipidemia, unspecified; I50.21 Acute systolic (congestive) heart failure; I11.0 Hypertensive heart disease with heart failure; Z82.49 Family history of ischemic heart disease and other diseases of the circulatory system; I25.5 Ischemic cardiomyopathy; Z79.84 Long term (current) use of oral hypoglycemic drugs; Z85.41 Personal history of malignant neoplasm of cervix uteri; D75.839 Thrombocytosis, unspecified; E11.9 Type 2 diabetes mellitus without complications
CPT/HCPCS: 36415; 71045; 80048; 80053; 80061; 82962; 83036; 83735; 84443; 84484; 85025; 85347; 85610; 85651; 86140; 92928; 93005; 93306; 93454; 99152; 99153; C1725; C1769; C1874; C9600; J1644; Q9967

== ENCOUNTER 2023-09-24 10:36 | Outpatient (CLI) | payer MEDICAID, SELFPAY ==
[2023-09-24 11:04] LABS: Basophils # 0.1 K/mm3 (0-0.2); Basophils % 0.9 % (0.1-2.0); Eosinophils # 0.4 K/mm3 (0.0-0.4); Eosinophils % 3.6 % (0.1-12.0); Hemoglobin 13.2 g/dL (12.2-16.2); Lymphocytes # 3.4 K/mm3 (0.7-4.5); Lymphocytes % 29.6 % (10-50); Mean Corpuscular HGB Conc 32.2 g/dL (31.8-35.4); Mean Corpuscular Hemoglobin 32.8 pg (27.0-31.2); Mean Platelet Volume 7.6 fl (7.4-10.4); Monocytes # 0.5 K/mm3 (0.1-1.0); Monocytes % 4.2 % (1.7-9.3); Neutrophils # 7.2 K/mm3 (1.8-7.8); Neutrophils % 61.7 % (37.0-80.0); Platelet Count 479 K/mm3 (142-424); Red Blood Count 4.03 M/mm3 (4.20-5.40); Red Cell Distribution Width 14.5 % (11.5-17.5); White Blood Count 11.6 K/mm3 (4.8-10.8)
[2023-09-24 11:29] LABS: Anion Gap 15.5 mEq/L (5-15); Blood Urea Nitrogen 23 mg/dl (7-17); Calcium 9.5 mg/dl (8.4-10.2); Carbon Dioxide 21 mmol/L (22.0-30.0); Chloride 107 mmol/L (98-107); Estimated Glomerular Filt Rate 68 ml/min (>60); GFR (African American) 82 ML/MIN (>60); Glucose 105 mg/dl (74-100); Potassium 4.5 mmoL/L (3.5-5.1); Sodium 139 mmol/L (136-145)
== END 2023-09-24 23:59 | disposition home or self-care (01) ==
LOC: LAB 10:37
PROVIDERS: PCP Family Medicine; Visit Provider Internal Medicine
DX: I21.4 Non-ST elevation (NSTEMI) myocardial infarction (principal); Z79.01 Long term (current) use of anticoagulants; F17.200 Nicotine dependence, unspecified, uncomplicated; I10 Essential (primary) hypertension
CPT/HCPCS: 36415; 80048; 85025

== ENCOUNTER 2023-12-02 11:28 | Outpatient (CLI) | payer MEDICAID, SELFPAY ==
[2023-12-02 12:52] LABS: Basophils # 0.1 K/mm3 (0-0.2); Eosinophils # 0.5 K/mm3 (0.0-0.4); Eosinophils % 5.1 % (0.1-12.0); Hematocrit 43.1 % (37.0-47.0); Hemoglobin 13.5 g/dL (12.2-16.2); Lymphocytes # 4.3 K/mm3 (0.7-4.5); Lymphocytes % 41.1 % (10-50); Mean Corpuscular HGB Conc 31.3 g/dL (31.8-35.4); Mean Platelet Volume 7.9 fl (7.4-10.4); Monocytes # 0.4 K/mm3 (0.1-1.0); Monocytes % 4.1 % (1.7-9.3); Neutrophils # 5.1 K/mm3 (1.8-7.8); Neutrophils % 48.7 % (37.0-80.0); Platelet Count 488 K/mm3 (142-424); Red Blood Count 4.22 M/mm3 (4.20-5.40); Red Cell Distribution Width 14.1 % (11.5-17.5); Reticulocyte % (Auto) 1.5 % (0.9-3.2); White Blood Count 10.6 K/mm3 (4.8-10.8)
[2023-12-02 13:19] LABS: Albumin Level 4.3 g/dl (3.5-5.0); Chloride 110 mmol/L (98-107); Potassium 5.1 mmoL/L (3.5-5.1); Sodium 139 mmol/L (136-145)
[2023-12-02 13:22] LABS: Alanine Aminotransferase 22 U/L (12-78); Albumin/Globulin Ratio 1.5 (1.1-1.8); Alkaline Phosphatase 90 U/L (38-126); Anion Gap 14.1 mEq/L (5-15); Aspartate Amino Transferase 21 U/L (14-36); Bilirubin,Total 0.6 mg/dl (0.2-1.3); Blood Urea Nitrogen 22 mg/dl (7-17); Carbon Dioxide 20 mmol/L (22.0-30.0); Estimated Glomerular Filt Rate 60 ml/min (>60); GFR (African American) 73 ML/MIN (>60); Globulin 2.8 g/dL (1.3-3.2); Iron 102 ug/dL (37-170); Total Protein,Serum 7.1 g/dl (6.3-8.2)
[2023-12-02 13:23] LABS: Calcium 9.4 mg/dl (8.4-10.2); Glucose 87 mg/dl (74-100)
[2023-12-02 13:32] LABS: Total Iron Binding Capacity 400 ug/dL (265-497)
[2023-12-02 14:54] LABS: Vitamin B12 318 pg/mL (239-931)
[2023-12-04 11:33] LABS: Peripheral Smear Review Scanned Result
== END 2023-12-02 23:59 | disposition home or self-care (01) ==
LOC: LAB 11:29
PROVIDERS: PCP Family Medicine; Visit Provider Internal Medicine Medical Oncology
DX: D72.829 Elevated white blood cell count, unspecified (principal); Z68.32 Body mass index [BMI] 32.0-32.9, adult
CPT/HCPCS: 36415; 80053; 82607; 82746; 83540; 83550; 85025; 85044

== ENCOUNTER 2024-01-01 06:09 | Outpatient (CLI) | payer MEDICAID, SELFPAY ==
--- NOTE | 2024-01-01 06:16 | CT_ITS ---
FINAL REPORT TECHNIQUE: Axial CT images were performed through the head. Coronal reformatted images were submitted. This study was performed with techniques to keep radiation doses as low as reasonably achievable (ALARA). Individualized dose reduction techniques using automated exposure control or adjustment of mA and/or kV according to the patient's size were employed. CLINICAL HISTORY: blurry vision, numbness BUE, FINDINGS: The ventricles are normal in size. There is no evidence of hemorrhage. There is no mass or edema identified. There is no abnormal extra-axial fluid seen. The sinuses are well aerated. IMPRESSION: No acute intracranial process. Reviewed, Interpreted and Dictated by Servando Jacinto MD Transcribed by Lori Glasgow Authenticated and [facility]
== END 2024-01-01 23:59 | disposition home or self-care (01) ==
LOC: RAD 06:10
PROVIDERS: PCP Family Medicine; Visit Provider Nurse Practitioner Family
DX: H53.8 Other visual disturbances (principal); R20.0 Anesthesia of skin; R20.2 Paresthesia of skin
CPT/HCPCS: 70450

== ENCOUNTER 2024-01-02 07:54 | Outpatient (CLI) | payer MEDICAID, SELFPAY ==
--- NOTE | 2024-01-02 07:59 | CA_ITS ---
APPROVED REPORT EXAM: Comprehensive 2D, Doppler, and color-flow Echocardiogram Shoe Stock Associate: Kerri Gibbons, RCS, RVS Ht: 5 ft 2 in Wt: 173lbs BSA: 1.80 BP: 164/87 mmHg Indications: HF, HTN, CP, H/o-NV, Previous EF 45%-09/2023, DM Smoker, SOB Echo Enhancing Agent Comments: Abnormal pallor 2D Dimensions IVSd 0.73 cm LVEF (Visual) 68.90 % PWd 0.97 cm EF AP4 54.90 % LVDd 4.59 cm GL Strain -19.9 % LVDs 2.82 cm Aortic Root 2.43 cm Left Atrium 2.65 cm RVID Base (AP4) 2.36 cm (M/F) 2.5-4.1 LVOT 1.88 cm (M/F) 1.5-2.5 M-Mode Dimensions LVDd 4.59 cm (3.5-5.7) Ao Diam 3.06 cm (2.0-3.7) LVDs 4.02 cm (3.5-5.7) IVSd 0.73 cm (0.6-1.1) PWd 0.97 cm (0.6-1.1) EF (Teich) 49.70% EPSs 1.41 cm FS 29.80% EDV (Teich) 140.70 mL TAPSE 1.83 (<1.7) ESV (Teich) 70.80 mL LV Diastology E Decel Time 186 (160-240 msec) E/A Ratio 1.10 MED E' 10.6 (>= 7 cm/sec) MED A' 12.80 cm/s E'/MED E' Ratio 7.41 (<= 14) LAT E' 12.4 (>= 10 cm/sec) LAT A' 9.40 cm/s E/LAT E' Ratio 6.33 (<= 14) Aortic Valve LVOT Max 123.0 (70-110 cm/s) ABIDA Index 1.06 cm2/m2 LVOT VTI 21.83 cm AoV Peak Terrence. 175.0 (50-130 cm/s) AO Mean GR. 6.60 (<5 mmHg) AO VTI 31.8 (18-25 cm) ABIDA (VTI) 1.90 (2.5-4.5 cm2) Mitral Valve MV E Max Terrence. 79.0 (40-130 cm/s) MV A Velocity 72.0 (40-130 cm/s) E/A Ratio 1.10 MV Decel. Time 186 (160-240 ms) MV Mean Gr. 1.30 (<2mmHg) MV PHT 39.0 ms Tricuspid Valve TR P. Velocity 244.00 cm/s RAP Estimate 10.00 mmHg RVSP 33.80 mmHg Left Ventricle The left ventricle is normal size. The left ventricular systolic function is normal. The left ventricular ejection fraction is within the normal range. There is normal left ventricular wall thickness. There is normal LV segmental wall motion. The left ventricular diastolic function is normal. LVEF is 55%. Right Ventricle The right ventricle is normal size. The right ventricular systolic function is normal. Atria The left atrium size is normal. The right atrium size is normal. There is no Doppler evidence of interatrial shunt. Aortic Valve The aortic valve opens well. There is no aortic valvular stenosis. No aortic regurgitation is present. Mitral Valve The mitral valve is normal in structure. No evidence of mitral valve stenosis. There is no mitral valve regurgitation noted. Tricuspid Valve Tricuspid valve is grossly normal in structure and function. Trace tricuspid regurgitation. RVSP is normal. Pulmonic Valve The pulmonary valve is normal in structure. Trace pulmonic regurgitation. Great Vessels The aortic root is normal in size. The ascending aorta is not well-visualized. IVC is normal in size and collapses >50% with inspiration. Pericardium There is no pericardial effusion. Other Information Study Quality: Adequate Conclusion Normal biventricular systolic function. No significant valvular stenosis or regurgitation. Compared to prior study from 09/2023, the LVEF has improved and is now normal. Electronically signed by : Gemini Laureano MD 01/04/2024 21:54:50
== END 2024-01-02 23:59 | disposition home or self-care (01) ==
LOC: RT 07:55
PROVIDERS: PCP Family Medicine; Visit Provider Nurse Practitioner
DX: I11.0 Hypertensive heart disease with heart failure (principal); I50.20 Unspecified systolic (congestive) heart failure; R06.00 Dyspnea, unspecified
CPT/HCPCS: 93306

== ENCOUNTER 2024-01-05 08:47 | Outpatient (CLI) | payer MEDICAID, SELFPAY ==
[2024-01-05 09:10] LABS: Basophils # 0.1 K/mm3 (0-0.2); Basophils % 1.1 % (0.1-2.0); Eosinophils # 0.5 K/mm3 (0.0-0.4); Eosinophils % 5.2 % (0.1-12.0); Hematocrit 40.2 % (37.0-47.0); Hemoglobin 12.6 g/dL (12.2-16.2); Lymphocytes # 3.4 K/mm3 (0.7-4.5); Lymphocytes % 36.6 % (10-50); Mean Corpuscular HGB Conc 31.5 g/dL (31.8-35.4); Mean Corpuscular Hemoglobin 32.7 pg (27.0-31.2); Mean Platelet Volume 8.2 fl (7.4-10.4); Monocytes # 0.3 K/mm3 (0.1-1.0); Monocytes % 3.5 % (1.7-9.3); Neutrophils # 4.9 K/mm3 (1.8-7.8); Neutrophils % 53.7 % (37.0-80.0); Platelet Count 475 K/mm3 (142-424); Red Blood Count 3.86 M/mm3 (4.20-5.40); Red Cell Distribution Width 14.5 % (11.5-17.5); White Blood Count 9.2 K/mm3 (4.8-10.8)
[2024-01-05 12:36] LABS: Alanine Aminotransferase 33 U/L (12-78); Alkaline Phosphatase 78 U/L (38-126); Anion Gap 13.5 mEq/L (5-15); Aspartate Amino Transferase 25 U/L (14-36); Bilirubin,Direct 0.3 mg/dl (0.0-0.4); Bilirubin,Total 0.3 mg/dl (0.2-1.3); Blood Urea Nitrogen 20 mg/dl (7-17); Calcium 9.7 mg/dl (8.4-10.2); Carbon Dioxide 17 mmol/L (22.0-30.0); Chloride 116 mmol/L (98-107); Chol/HDL Ratio 3.2 (1-3.5); Cholesterol 149 mg/dl (140-200); Estimated Glomerular Filt Rate 68 ml/min (>60); GFR (African American) 82 ML/MIN (>60); Glucose 117 mg/dl (74-100); HDL Cholesterol 47 mg/dl (40-60); Potassium 4.5 mmoL/L (3.5-5.1); Sodium 142 mmol/L (136-145); Total Protein,Serum 6.3 g/dl (6.3-8.2); Triglycerides 95 mg/dl (30-150); VLDL Cholesterol 19 mg/dL (0-40)
[2024-01-05 12:47] LABS: Direct LDL Cholesterol 77.47 mg/dL (100-129)
[2024-01-05 13:08] LABS: Thyroid Stimulating Hormone 1.15 uIU/mL (0.465-4.68)
== END 2024-01-05 23:59 | disposition home or self-care (01) ==
LOC: LAB 08:48
PROVIDERS: PCP Family Medicine; Visit Provider Physician Assistant
DX: R94.31 Abnormal electrocardiogram [ECG] [EKG] (principal); I25.118 Atherosclerotic heart disease of native coronary artery with other forms of angina pectoris; I50.20 Unspecified systolic (congestive) heart failure; D75.839 Thrombocytosis, unspecified; F17.200 Nicotine dependence, unspecified, uncomplicated; E66.9 Obesity, unspecified; E11.69 Type 2 diabetes mellitus with other specified complication; E78.5 Hyperlipidemia, unspecified; I10 Essential (primary) hypertension; Z68.32 Body mass index [BMI] 32.0-32.9, adult; Z79.84 Long term (current) use of oral hypoglycemic drugs
CPT/HCPCS: 36415; 80048; 80061; 80076; 83735; 84439; 84443; 85025

== ENCOUNTER 2024-07-12 08:59 | Outpatient (CLI) | payer MEDICAID, SELFPAY ==
[2024-07-12 09:53] LABS: Albumin Level 4.5 g/dl (3.5-5.0); Chloride 110 mmol/L (98-107)
[2024-07-12 09:54] LABS: Potassium 4.7 mmoL/L (3.5-5.1); Sodium 138 mmol/L (136-145)
[2024-07-12 09:56] LABS: Anion Gap 15.7 mEq/L (5-15); Bilirubin,Unconjugated 0.3 mg/dL (0.0-1.1); Blood Urea Nitrogen 12 mg/dl (7-17); Carbon Dioxide 17 mmol/L (22.0-30.0); Estimated Glomerular Filt Rate 78 ml/min (>60); GFR (African American) 94 ML/MIN (>60)
[2024-07-12 09:57] LABS: Alanine Aminotransferase 18 U/L (12-78); Alkaline Phosphatase 96 U/L (38-126); Aspartate Amino Transferase 21 U/L (14-36); Bilirubin,Direct 0.2 mg/dl (0.0-0.4); Bilirubin,Indirect 0.3 mg/dL (0.0-0.9); Bilirubin,Total 0.5 mg/dl (0.2-1.3); Calcium 9.6 mg/dl (8.4-10.2); Cholesterol 138 mg/dl (140-200); Glucose 105 mg/dl (74-100); Total Protein,Serum 6.8 g/dl (6.3-8.2); Triglycerides 140 mg/dl (30-150); VLDL Cholesterol 28 mg/dL (0-40)
[2024-07-12 10:08] LABS: Direct LDL Cholesterol 57.11 mg/dL (100-129)
[2024-07-12 10:10] LABS: Basophils # 0.1 K/mm3 (0-0.2); Basophils % 0.6 % (0.1-2.0); Eosinophils # 0.2 K/mm3 (0.0-0.4); Hematocrit 38.6 % (37.0-47.0); Lymphocytes # 4.5 K/mm3 (0.7-4.5); Lymphocytes % 39.6 % (10-50); Mean Corpuscular HGB Conc 33.7 g/dL (31.8-35.4); Mean Corpuscular Hemoglobin 31.9 pg (27.0-31.2); Mean Corpuscular Volume 94.8 fl (81-99); Mean Platelet Volume 9.3 fl (7.4-10.4); Monocytes # 0.6 K/mm3 (0.1-1.0); Monocytes % 5.2 % (1.7-9.3); Neutrophils # 5.9 K/mm3 (1.8-7.8); Neutrophils % 52.3 % (37.0-80.0); Platelet Count 479 K/mm3 (142-424); Red Blood Count 4.07 M/mm3 (4.20-5.40); White Blood Count 11.3 K/mm3 (4.8-10.8)
[2024-07-12 10:13] LABS: Free T4 (Free Thyroxine) 1.34 ng/dl (0.78-2.19)
[2024-07-12 10:28] LABS: Thyroid Stimulating Hormone 1.61 uIU/mL (0.465-4.68)
[2024-07-12 12:07] LABS: Chol/HDL Ratio 2.9 (1-3.5); HDL Cholesterol 47 mg/dl (40-60)
== END 2024-07-12 23:59 | disposition home or self-care (01) ==
LOC: LAB 09:00
PROVIDERS: PCP Emergency Medicine; Visit Provider Physician Assistant
DX: I25.118 Atherosclerotic heart disease of native coronary artery with other forms of angina pectoris (principal); E11.69 Type 2 diabetes mellitus with other specified complication; E78.5 Hyperlipidemia, unspecified; I10 Essential (primary) hypertension
CPT/HCPCS: 36415; 80048; 80061; 80076; 84439; 84443; 85025

== ENCOUNTER 2024-11-23 09:36 | Outpatient (CLI) | payer MEDICAID, SELFPAY ==
--- OUTSIDE RECORDS SUMMARY | 2024-11-23 09:40 | XMS_ITS | Referral Summary ---
Author Organization [facility] ([place], [place], [place], [place]) Address [address] [place] [address] Care Team Providers Care Courtroom Deputy Name Role Phone Unavailable Primary Care Provider Unavailabl e Social History Tobacco Use Types Packs/Day Years Used Date Smoking Tobacco: Never Assessed Food Insecurity Answer Date Recorded Food run out past 12 months Not on file 12/2023 Food did not last past 12 months Not on file 10/21/2023 Employment Answer Date Recorded Help finding and keeping a job Not on file 0 10/21/2023 Family and Community Support Answer Vitor e Recorded Help with Day to Day Activities Not on file 10/21/2023 Feeling Lonely or Isolated Not on file 10/20 Educational Attainment Answer Date Jens rded Speak language other than Sammarinese at home Not on file 10/21/2023 Want help with school or training Not on file 10/21/2023 Substance Use Answer Date Recorded Used prescription meds for non-medical reasons N ot on file 10/21/2023 Used illegal drugs past 12 months Not on file 10/21/2023 Comments Unknown Sex and Gender Information Value Date Recorded Sex Assigned at Not on file Legal Sex Female 10:16 AM CDT Gender Identity Not on file Sexual Orientation Not on file Plan of Treatment Not on file Insurance [facility]
--- OUTSIDE RECORDS SUMMARY | 2024-11-23 09:40 | XMS_ITS | Clinical Summary ---
Author Organization [facility] ([place], [place], [place], [place]) Address [address] [place] [address] Care Team Providers Care Rapid Outsole Stitcher Name Role Phone Unavailable Primary Care Provider [...] Date Jens rded Speak language other than Congolese at home Not on file 10/21/2023 Want [...] Plan of Treatment Not on file Insurance [facility]
--- OUTSIDE RECORDS SUMMARY | 2024-11-23 09:40 | XMS_ITS | Encounter Summary ---
Author Organization [facility] Address [address] [place] [address] Care Team Providers Care Water Resources Program Director Name Role Phone Tim Cleary MD Primary Care Provider [phone] Reason for Visit * Reason Comments Med Refill Encounter Details Date Type Department Care Team ([facility] st Contact Info) Description 12/01/2016 Refill [facility] [address] [place] [address] Jessica Fonseca, SENIOR BUYER [address] [place] [address] Social History Tobacco Use Types Packs/Day Years Used Date Smoking Tobacco: Every Day Comments No Sex and Gender Information Value Date Recorded Sex Assigned at Not on file Legal Sex Female 12:16 PM EDT Gender Identity Not on file Sexual Orientation Not on file documented as of this encounter Plan of Treatment Not on file documented as of this encounter Visit Diagnoses Not on filedocumented in this encounter Care Teams Water Resources Program Director Relationship Specialty Start Date End Date Tim Cleary MD [address] [place] [address] PCP - General Family Medicine 09/03/16 documented as of this encounter
--- OUTSIDE RECORDS SUMMARY | 2024-11-23 09:40 | XMS_ITS | Clinical Summary ---
Author Organization [facility] Address [address] [place] [address] Care Team Providers Care Flatbed Stitcher Name Role Phone Tim Cleary MD Primary Care Provider [phone] Allergies Active Allergy Reactions Criticality Noted Date Comments Lisinopril Unknown - High Severity 04/09/2023 Medications naproxen (NAPROSYN) 250 MG tablet Take 1 tablet by mouth As Needed for Mild Pain. Active Insulin Glargine (BASAGLAR KWIKPEN SC) Inject 15 Units under the skin Daily. Active amLODIPine (NORVASC) 10 MG tablet Daily. Active Jardiance 25 MG tablet tablet TAKE 1 TABLET BY MOUTH EVERY DAY IN THE MORNING FOR 90 DAYS 3 Active levocetirizine (XYZAL) 5 MG tablet Take 1 tablet by mouth Every Evening. Active metFORMIN (GLUCOPHAGE) 500 MG tablet take 1 tablet by mouth twice a day for 90 days Active Ozempic, 0.25 or 0.5 MG/DOSE, 2 MG/3ML solution pen-injector INJECT 0.5 MG SUBCUTANEOUSLY ONCE WEEKLY 3 Active pravastatin (PRAVACHOL) 20 MG tablet Take 1 tablet by mouth Daily. 3 Active nebivolol (BYSTOLIC) 10 MG tablet Take 1 tablet by mouth Daily. 3 Active Active Problems Problem Noted Date Diagnosed Date Hypertension 04/09/2023 Elevated cholesterol 04/09/2023 Type 2 diabetes mellitus 04/09/2023 Chronic chest pain with low to moderate risk for CAD 04/09/2023 Family history of premature CAD 04/09/2023 Hypersomnia 04/09/2023 Tobacco use 04/09/2023 Family History Medical History Relation Name Comments Diabetes Mother 60 Heart disease Mother 60 Relation Name Status Comments Father 63 Mother 60 Sister 42 Alive Social History Tobacco Use Types Packs/Day Years Used Date Smoking Tobacco: Every Day Cigarettes 1 30 Passive Smoke Exposure: Current Smokeless Tobacco: Never Tobacco Cessation:Ready to Q uit: No; Counseling Given: Yes Alcohol Use Standard Drinks/Week Comments Defer 0 (1 standard drink = 0.6 oz pur e alcohol) Abuse Screen Answer Date Recorded Unsafe at Home or Work/School Not on file Feels Threatened by Someone? Not on file 01/2023 Does Anyone Keep You from Co ntacting Others or Doint Things Outside the Home? Not on file 01/21/2023 Physical Sign of Abuse Present Not on file 1 Housing Stability Answer Date Recorded Current Living Arrangements Not on file 01/12 Potentially Unsafe Housing Conditions Not on ely e 01/21/2023 Family and Community Support Answer Vitor e Recorded Help with Day-to-Day Activities Not on file 01/21/2023 Lonely or Isolated Not on file 01/21/2023 Employment Answer Date Recorded Do you want help finding or keeping work or a awilda b? Not on file 01/21/2023 Disabilities Answer Date Recorded Concentrating, Remembering, or Making Decisions Difficulty Not on file 01/21/2023 Doing Errands Independently Difficulty Not on fi le 01/21/2023 Education Answer Date Recorded Help with school or training? Not on file Preferred Language Not on file 01/21/2023 Comments No Sex and Gender Information Value Date Recorded Sex Assigned at Not on file Legal Sex Female 12:16 PM EDT Gender Identity Not on file Sexual Orientation Not on file Last Filed Vital Signs Vital Sign Reading Time Taken Comments Blood Pressure 128/76 04/09/2023 1:24 PM EST Pulse 78 04/09/2023 1:24 PM EST Temperature 36.6 C (97.9 F) 05/19/2018 8:16 AM EST Respiratory Rate 15 05/19/2018 8:16 AM EST Oxygen Saturation 98% 04/09/2023 1:24 PM EST Inhaled Oxygen Concentration - - Weight 77.1 kg (170 lb) 04/09/2023 1:24 PM EST Height 157.5 cm (5' 2 ) 04/09/2023 1:24 PM EST Body Mass Index 31.09 04/09/2023 1:24 PM EST Plan of Treatment Health Maintenance Due Date Last Done Comments Annual Gynecologic Pelvic and Breast Exam 1979 LIPID PANEL 1979 DIABETIC EYE EXAM 1989 DIABETIC FOOT EXAM 1989 URINE MICROALBUMIN-CREATININE RATIO (uACR) 1989 Hepatitis B (1 of 3 - 19+ 3-dose series) 1998 Pneumococcal Vaccine 0-49 (1 of 2 - PCV) 1998 TDAP/TD VACCINES (1 - Tdap) 1998 PAP SMEAR 2000 ANNUAL PHYSICAL 09/03/2016 HEMOGLOBIN A1C 09/03/2016 HEPATITIS C SCREENING 09/03/2016 MAMMOGRAM 2019 COVID-19 Vaccine ( - season) 2023 COLOGUARD 2024 COLON CANCER SCREENING 5 YEAR SIGMOIDOSCOPY 2024 COLONOSCOPY 2024 COLORECTAL CANCER SCREENING 2024 CT COLONOGRAPHY 2024 FECAL OCCULT BLOOD TEST 2024 FIT Testing (1 year) 2024 INFLUENZA VACCINE 01/12/2025 01/27/2023 Insurance [employer] Care Teams Flatbed Stitcher Relationship Specialty Start Date End Date Tim Cleary MD [address] [place] [address] PCP - General Family Medicine 09/03/16
== END 2024-11-23 23:59 | disposition home or self-care (01) ==
LOC: RT 09:37
PROVIDERS: PCP Emergency Medicine; Visit Provider Nurse Practitioner
DX: I49.1 Atrial premature depolarization (principal); I47.19 Other supraventricular tachycardia; I49.3 Ventricular premature depolarization; R94.31 Abnormal electrocardiogram [ECG] [EKG]
CPT/HCPCS: 93270